=== PATIENT | female | born 1960 | race Caucasian/White ===

== ENCOUNTER 2024-08-03 13:21 | Emergency (ER) | payer OTHER, SELFPAY ==
--- NOTE | ~2024-08-03 | XR_ITS ---
CLINICAL HISTORY: pain 3 views lumbar spine Comparison: None Findings: Grade 1 anterolisthesis of L4 on L5. Moderate chronic wedging of L3. Multilevel disc space narrowing and endplate osteophyte formation, as well as facet hypertrophy. No significant degenerative change. IMPRESSION: No acute findings. This document has been electronically signed by: Charla Zaman MD on 08/03/2024 15:30:41
--- NOTE | ~2024-08-03 | XR_ITS ---
CLINICAL HISTORY: pain 3 views sacrum and coccyx Comparison: None Findings No acute fractures. No significant degenerative change. No erosions. IMPRESSION: No acute findings This document has been electronically signed by: Charla Zaman MD on 08/03/2024 15:30:55
[2024-08-03 13:23] VITALS: BP 130/56; PULSE 100; RESP 18; TEMP 36.4; O2SAT 98; BMI 50.3
--- NOTE | 2024-08-03 13:23 | ED_ITS ---
HPI - Back Pain/Injury General Chief Complaint: Back Pain/Injury Stated Complaint: back pain inj Time Seen by Provider: 08/03/24 16:17 Source: patient, family and RN notes reviewed Mode of arrival: ambulatory Limitations: no limitations History of Present Illness ED Provider: Ayla Cooney PA-C HPI Narrative: This is a [id number]-female, with a hx of herniated discs, HTN, HLD, spinal stenosis, eczema ovarian cysts, and eye strabismus, who presents to the ER with concerns for back pain s/p mechanical fall x 3 days. Reports that on Sunday, she tripped on the threshold in her home in her garage, and ultimately falling onto her back. She immediately had pain in her back. Denies hitting head or LOC. Reports that pain is alleviated laying down flat. She cannot fully stand up straight. Reports no urinary or bowel incontinence. No numbness/tingling. Reporting no back surgeries in the past. Taking tylenol for sxs. Pt ambulatory. She denies hitting her head or LOC. She is not on anticoagulation. No other complaints or concerns at this time. MD elicited complaint: back pain Pertinent past history: recent trauma Onset (ago): day(s) Timing: constant Severity: moderate Similar Symptoms Previously: No Quality: aching Location: lumbar spine and sacrum Radiation: none Exacerbating factors: movement Relieving factors: immobilization Context: fall Associated symptoms: denies other symptoms Work related injury: No Related Data Previous Rx's ?Medication ?Instructions ?Recorded acetaminophen 500 mg tablet 1,000 mg (2 x 500 mg) PO Q8H PRN 08/03/24 (Tylenol Extra Strength) pain #30 tabs cyclobenzaprine 10 mg tablet 10 mg PO TID #14 tabs 08/03/24 lidocaine 5 % topical patch 1 patch topical DAILY #30 ea 08/03/24 Allergies Allergy/AdvReac Type Severity Reaction Status Date / Time No Known Allergies Allergy Unverified 08/03/24 13:29 Review of Systems Review of Systems: Constitutional: No Weight loss, No Fever, No Chills, No Night Sweats, No Fatigue, No Malaise ENT/Mouth: No Hearing loss, No Ear Pain, No Nasal Congestion, No Sinus Pain, No Hoarseness, No sore throat, No Rhinorrhea, No Swallowing Difficulty Eyes: No Eye Pain, No Swelling, No Redness, No Foreign Body, No Discharge, No Vision Changes Cardiovascular: No Chest Pain, No SOB, No Dyspnea on Exertion, No Orthopnea, No Edema, No Palpitations Respiratory: No Cough, No Sputum, No Wheezing, No Smoke Exposure, No Dyspnea Gastrointestinal: No Nausea, No Vomiting, No Diarrhea, No Constipation, No Abdominal pain, No Hematochezia, No Melena Genitourinary: No irregular bleeding, No Dysuria, No Urinary Frequency, No Hematuria, No Urinary Incontinence/retention, No Urgency, No Flank Pain, No Urinary Flow Changes, No Hesitancy Musculoskeletal: +back pain, No joint pain, No Myalgias, No Joint Swelling Skin: No Skin Lesions, No rash Neuro: No Weakness, No Numbness, No Paresthesias, No Loss of Consciousness, No Dizziness, No Headache Psych: No Anxiety/Panic, No Depression, No SI/HI/AH/VH, No Social Issues, Heme/Lymph: No Bruising, No Bleeding,No Lymphadenopathy Endocrine: No Polyuria, No Polydipsia, No Temperature Intolerance Yes all other systems are reviewed and are negative Constitutional: Constitutional: Reports as per [facility] Social History Social History Advance Directives: No Advance Directives Information Provided: Yes Advance Directives on File: No Physical Exam Vital Signs: Vital Signs: Last Vital Signs Temp 96.8 F 08/03/24 16:28 Pulse 82 08/03/24 16:28 Resp 22 H 08/03/24 16:28 BP 113/76 08/03/24 16:28 Pulse Ox 95 08/03/24 16:28 O2 Del Method Room Air 08/03/24 16:28 BMI result Body Mass Index 50.3 Const: General: cooperative, comfortable and no acute distress Orientation/consciousness: patient oriented x3 Limitations: no limitations HEENT: Head: Yes normal to inspection, Yes normocephalic and Yes atraumatic Ears: hearing grossly normal bilaterally General nose exam: Normal external nose present Face and sinus: Yes normal facial exam Mouth: Normal oral and palatal mucosa present, oropharynx normal and moist mucous membranes Throat: Yes posterior oropharynx normal Eyes: General: appearance normal, both eyes and all related structures Eyelids: Yes eyelids normal Conjunctivae: conjunctivae normal Sclerae: sclerae normal Pupils: Equal, round and reactive pupils present EOM: EOMs intact bilaterally Neck: Neck: Yes normal visual inspection, Yes full ROM and Yes no ly mphadenopathy Lymphatic: no lymphadenopathy noted Chest: Chest palpation & inspection: normal inspection of the chest Resp: Effort & Inspection: normal respiratory effort and able to speak in complete sentences Auscultation: clear to auscultation bilaterally, no crackles, no rales, no rhonchi and no wheezes Cardio: Rate: regular rate Rhythm: regular rhythm Heart sounds: S1 normal heart sound present and S2 normal heart sound present GI: Inspection: Yes normal to inspection Back/Spine/Pelvis: Other: Patient with tenderness palpation overlying the lumbar midline spine and sacral region, as well as lumbar paraspinous muscles. Able to flex and extend however with pain appreciated. No overlying skin changes, no open wounds or lacerations. Skin: General skin exam: no rashes or lesions noted Trauma: no lacerations or abrasions Wounds: no wounds Neuro: General: patient oriented x3 and moves all extremities Cranial nerves: Yes Equal, round and reactive pupils present Extrem: General: Yes normal to inspection Right upper extremity: normal to inspection Left upper extremity: normal to inspection Right lower extremity: normal to inspection Left lower extremity: normal to inspection Medical Decision Making Medical Decision Making MDM Narrative: This is a 64-year-old female who presents emergency department for evaluation of back pain status post mechanical fall which occurred 3 days ago. On arrival, vital signs within normal limits. She is speaking full sentences under no acute distress. She does have tenderness palpation along the lumbar midline spine and sacral region as well as the lumbar paraspinous muscles. She has no urinary or bowel retention or incontinence. No saddle anesthesia. Denies hitting her head or LOC. Will obtain x-rays to rule out any bony abnormality. 1600 - x-rays were reviewed revealing no acute findings, there is a grade 1 anterolisthesis at L4 on L5, with chronic wedging of L3, and multilevel disc space narrowing and endplate osteophyte formation. I discussed this with patient. Will discharged on Tylenol, lidocaine patches and muscle relaxants. Urged the importance of following up with the primary care physician. She has no red flag back symptoms therefore additional imaging not indicated at this time. Given strict return precautions. Patient stable for discharge. Differential Diagnosis Differential Diagnoses: The differential diagnosis associated with the presentation includes Fracture, contusion, sprain, strain, dislocation, disc herniation Admission/Observation Consideration of admission/observation: Escalation of care including admi ssion/observation considered Radiology Impression Discussion of test interpretation with radiology: I have reviewed the radiologist's reading. Radiologist Impression: Findings: Grade 1 anterolisthesis of L4 on L5. Moderate chronic wedging of L3. Multilevel disc space narrowing and endplate osteophyte formation, as well as facet hypertrophy. No significant degenerative change. IMPRESSION: No acute findings. This document has been electronically signed by: Charla Zaman MD on 08/03/2024 15:30:41 Dictated By: Charla Zaman MD Findings No acute fractures. No significant degenerative change. No erosions. IMPRESSION: No acute findings This document has been electronically signed by: Charla Zaman MD on 08/03/2024 15:30:55 Dictated By: Charla Zaman MD Discharge Plan Discharge Clinical Impression: Lumbar contusion Patient Disposition: Home, Self-Care Instructions: Contusion in Adults (ED) Additional Instructions: You were seen in the emergency department due to back pain after a fall. Your x-rays do not show any new bony abnormalities. You do have a grade 1 anterolisthesis on L4 on L5 (mildly slipped disc), as well as chronic wedging at L3, with multilevel disc space narrowing and osteophyte formations, this is degenerative findings. Please follow-up with your primary care physician regarding this visit. Take Tylenol as needed for pain. Flexeril as a muscle relaxants, take as needed. Please be advised that this can cause drowsiness, do not drink alcohol or drive while taking this medication. Gentle stretching, heat or ice, and massage can also help with your symptoms. If any new or worsening symptoms occur including but not limited to severe chest pain, shortness of breath, worsening back pain, numbness tingling into your groin, loss of bladder or bowel control, please seek emergent care. Findings: Grade 1 anterolisthesis of L4 on L5. Moderate chronic wedging of L3. Multilevel disc space narrowing and endplate osteophyte formation, as well as facet hypertrophy. No significant degenerative change. IMPRESSION: No acute findings. This document has been electronically signed by: Charla Zaman MD on 08/03/2024 15:30:41 Prescriptions: New cyclobenzaprine 10 mg tablet 10 mg PO TID Qty: 14 0RF acetaminophen [Tylenol Extra Strength] 500 mg tablet 1,000 mg PO Q8H PRN (Reason: pain) Qty: 30 0RF lidocaine 5 % adhesive patch,medicated 1 patch topical DAILY Qty: 30 0RF Rx Instructions: leave on most painful area for up to 12 hrs Interventions: ED Discharge Assessment Last Done: 08/03/24 16:28 Discharge Date/Time: 08/03/24 16:29 Print Language: Slovenian
[2024-08-03 16:16] VITALS: BP 113/76; PULSE 82; RESP 22; TEMP 36; O2SAT 95
--- OUTSIDE RECORDS SUMMARY | 2024-08-03 16:25 | XMS_ITS ---
Author Name [facility] Organization Unknown History of Medication Use Medication Directions Dispensed Refills Start Date End Date Stat us lactated ringers infusion 100 mL/hr, Intravenous, Continuous, Starting on Sun08/10/23 at 0730, Pre-op 08/10/2023 active Encounters Encounter Type Encounter Reason Primary Diagnosis Location Date Ambulatory Tarsal tunnel syndrome, left lower limb Tarsal tunnel syndrome, left lower limb [facility] 08/10/2023 Care Team Organization Name Specialty Phone Email Start Date End Da te [facility] 0 07/31/2023 [facility] 07/30
--- OUTSIDE RECORDS SUMMARY | 2024-08-03 16:25 | XMS_ITS | Data Portability ---
Author Organization [facility] Address [address] [place] [address] Care Team Providers Care Financial Data Analyst Name Role Phone ETHAN CHANDLER Primary Care Provider [phone] Assessment Encounter Date Assessment Date Assessment LastModified by Organization Details LastModified Time 01/29/2019 01/29/2019 Astrid Mg is a 58 year old woman with low back pain radiating occasionally into both lower extremities On exam ,she has pain on flexion. MRI Lumbar spine shows L3-4: There is epidural lipomatosis and moderate degenerative facet arthropathy without significant central canal stenosis or foraminal stenosis. L4-5: . There is marked degenerative facet arthropathy and epidural lipomatosis causing mild flattening of the dural sac without nerve root compression. L5-S1: There is marked disc space narrowing and endplate degenerative spur formation. There is mild broad-based disc herniation and moderate degenerative facet arthropathy superimposed on epidural lipomatosis. There is mild left-sided foraminal stenosis without nerve root compression . Currently her pain level is low . She may benefit from a lumbar epidural steroid injection under fluoroscopic guidance. She can call for an appointment when pain returns. [email or web address] Not available 02/10/2019 12:14:17 Plan of Treatment Reminders Order Date Submit Date Provider Last Modified By Organization Details Last Modified Time Details Appointments None record ed. Lab None record ed. Referral None record ed. Procedures None record ed. Surgeries None record ed. Imaging None record ed. Medication Orders None record ed. Patient TargetsNo targets recorded. Patient InstructionsNo instructions recorded. Reason for Referral None Reported. Problems Name Problem SNOMED Code Status Onset Date Resolution Date Notes Provider Name and Address Organization Details Recorded Time Degeneration of lumbar intervertebral disc 45220199 Active Aimee baron MD [address] , [address], [place], [address], [place] [facility] 9 10:05:11 Lumbosacral radiculopathy 2057243 Active Aimee baron MD [address] , [address], [place], [address], [facility] 9 10:05:29 Problem Notes None recorded. Procedures Surgical History Date Name Laterality Status Provider Name and Address Organization Details Recorded Time Removal of ovarian cyst(s) completed Aimee Patel MD [address] , [address], [place], [address], [facility] - [facility] Management 02/10/2019 11:58:02 Imaging Results None recorded. Procedure Notes None recorded. Medical Equipment None Reported. Allergies Allergen ID Allergen Name Allergen Category Reaction Reaction Severity Criticality Documentation Date Start Date Code Code System Note Provider Name and Address Organization Details Recorded Time 29962 Substance with sulfonami de structure and antibacte rial mechanism of action (substanc e) medicatio n Not available Not available Not available 01/29/2019 [id number] SNOMED Daja baron [facility], [facility] 9 13:14:13 Medications Name Sig Start Date Stop Date Status Note LastModified by Organization Details LastModified Time lisinopril 20 mg-hydrochlo rothiazide 12.5 mg tablet TAKE 1 AND 1/2 TABLET BY MOUTH ONCE DAILY active Not Available Not Available No t Available lisinopril 20 mg tablet Take 1 tablet every day by oral route. 01/29 completed Not Available Not Available Not Available omeprazole 20 mg capsule,lamar yed release Take 1 capsule every day by oral route. active Not Available Not Available No t Available Shingrix (PF) 50 mcg/0.5 mL intramuscula r suspension, kit ADM 0.5ML IM UTD active Not Available Not Available No t Available Vitals Date Recorded Heart rate Oxygen saturation Oxygen saturation in Arterial blood by Pulse oximetry Pain severity - 0-10 verbal numeric rating [Score] - Reported Systolic blood pressure Diastolic blood pressure Provider Name and Address Organization Details Last Updated DateTime 9 90 /min 99 % 99 % 1 134 mm[Hg] 63 mm[Hg] Daja baron [place] - [facility] 9 13:14:53 Social History Question Answer Notes LastModified by Organizat ion Details LastModified Time Tobacco Smoking Status Never Smoker Daja goodwin [place] - [facility] 01/29/2019 13:18:14 What Is Your Level Of Alcohol Consumption? Moderate Information not available 01/29/2019 Which Illicit Or Recreational Drugs Have You Used? None Information not available 01/29/2019 What Is Your Occupation? Self Employed Information not available 01/29/2019 Sex: Unknown Functional Status None recorded. Mental Status None recorded. Family History Nothing Reported. Medical History Condition Response Gout N Neuropathy/Neuralgia N Kidney Stones N Hyperthyroidism N Hypothyroidism N Depression N COPD N Hepatitis C N Migrane N Anxiety Disorder N Diabetes N Arthritis Y Seizures/Epilepsy N Hyperlipidemia N Cancer N Stroke N Asthma N HIV/AIDS N Bipolar Disorder N GERD/Reflux Y High Cholesterol N Liver Disease N Pulmonary Embolism N Fibromyalgia N Irritable Bowel Syndrome Y Hypertension Y Osteoporosis N Kidney Disease N Gynecological HistoryNo gynecological history recorded. Obstetrics History GPAL:G 0 P 0 0 0 0 Past Encounters Encounter ID Performer Location Encounter Start Date Encounter Closed Date Diagnosis/Indication Diagnosis SNOMED-CT Code Diagnosis ICD10 Code Diagnosis Note [id number] Aimee Patel MD PAIN OFFICE [address] [place] [phone] 01/29/2019 13:02:39 02/10/2019 12:14:45 Lumbosacral radiculopathy 4679945 M54.17 Degenerati on of lumbar intervertebral disc 01941764 M51.36 Health Concerns Section Related Observation LastModified by Organization Detai ls LastModified Time None Recorded Concern Status LastModified by Organization Details LastModified Time None Recorded Advance Directives Directive None Recorded Payers Encounter Date Sequence Insurance Name Policy Number Policy [place] Covered Member ID [place] Member ID Guarantor Name 01/29/[address] [place] [address] [id number] Astriddavid Hopkinsy [id number] Astrid Mg Notes Date Note Type Note Provider Name and Address Organization Details Recorded Time 01/29/2019 text/html Astrid Mg i s a 58 year old woman with complaints of low back pain radiating into both legs . The pain started years ago . She states she is very active and was gardening and pushing a wheel huslia and started to have severe pain radiating into both lower extremities. She describes the pain as an aching pain. The pain has resolved and she is feeling better. Current pain level is 0-1/10. Pain is aggravated by standing and walking . Pain is relieved with rest. She is unable to sleep due to positioning and awakens multiple times at night due to pain. She has no history of bladder or bowel incontinence.MRI Lumbar spine shows L3-4: There is epidural lipomatosis and moderate degenerative facet arthropathy without significant central canal stenosis or foraminal stenosis. L4-5: . There is marked degenerative facet arthropathy and epidural lipomatosis causing mild flattening of the dural sac without nerve root compression. L5-S1: There is marked disc space narrowing and endplate degenerative spur formation. There is mild broad-based disc herniation and moderate degenerative facet arthropathy superimposed on epidural lipomatosis. There is mild left-sided foraminal stenosis without nerve root compressionShe has trialed physical therapy with some pain benefit. Aimee Patel MD [address] [place] [address] , [address], [place], [address], [place] [facility] 02/11/2019 09:00:34 OBGyn Episode No OBEpisode recorded.
--- OUTSIDE RECORDS SUMMARY | 2024-08-03 16:25 | XMS_ITS | Data Portability ---
Author Organization [facility], [facility] [place] Address [address] [place] [address] Care Team Providers Care Entrepreneurship Program Director Name Role Phone ETHAN CHANDLER Primary Care Provider Assessment No assessment recorded. Plan of Treatment Reminders Order Date Submit Date Provider Last Modified By Organization Details Last Modified Time Details Appointments RECHECK 15 2024 09:45A M Doris Fraser PA-C Not available Not available Not available Lab None recorded . Referral None recorded . Procedures None recorded . Surgeries None recorded . Imaging None recorded . Medication Orders None recorded . Patient TargetsNo targets recorded. Patient Instructions Encounter Date Encounter Id Patient Instructions Last Modified By Organization Details Last Modified Time 09/10/2023 [id number] You have been provided with a cortisone injection in order to reduce the pain and inflammation that you are experiencing. The injection consists of two medications. Cortisone (an anti-inflammatory that will take 48-72 hours to take effect) and Lidocaine (a numbing agent that will last 2-3 hours). Please note that not everyone will have a lasting response following the injection. PATIENT INSTRUCTIONS Once the Lidocaine wears off, you may have an increase in your pain. I recommend icing the affected area for 20 minutes 3-4 times per day. It is recommended that you refrain from any high level activities using the joint or limb that was injected for approximately 24-48 hours. Normal day-to-day activities are generally not a problem. POSSIBLE SIDE EFFECTS Individuals with dark complexions may experience some skin discoloration locally at the site of the injection. There is the possibility of an increase in discomfort within 48 hours following the injection. This is called a ? f lare? . To help minimize the chances of this, please see the post-injection instructions above. There is a less than 1% chance of an infection. If you notice any signs of infection (redness, warmth, drainage, fever greater than 100 degrees) please call our office or contact us through the portal EMILY. [email or web address] Not available 09/09/2023 08:12:38 Reason for Referral None Reported. Results Created Date Observation Date Name Description Value Unit Range Abnormal Flag Note LastModifiedBy Organization Detail LastModifiedTime 12/01/19 24 11/30/2021 imagi ng/di agnos tic resul t No observ ation record ed. [email or web address] Not Available 11/02 09:37:34 12/01/19 24 03/02/2021 imagi ng/di agnos tic resul t No observ ation record ed. [email or web address] Not Available 11/02 09:37:52 Result Notes None recorded. Problems Name Problem SNOMED Code Status Onset Date Resolution Date Notes Provider Name and Address Organization Details Recorded Time No complaints [id number] Active Status : 'A'; Not Available [facility] 4 09:17:01 Osteoarthr itis of right knee joint 1230767652322 00 Active 2023 Doris Fraser PA-C [address], [place], [address] , [facility] 4 11:39:00 Bilateral osteoarthr itis of knees 6656337753053 07 Active 2023 Doris Fraser PA-C [address], [place], [address] , [facility] 4 08:12:31 Problem Notes None recorded. Procedures Surgical History Date Name Laterality Status Provider Name and Address Organization Details Recorded Time 06/10/2024 Sports Knee 4&1 completed Doris Fraser PA-C [address], [place], [address], [facility] 06/09/2024 16:17:31 03/11/2024 Sports Knee 4&1 completed Doris Fraser PA-C [address], [place], [address], [facility] 03/10/2024 14:02:01 12/11/2023 Sports Knee 4&1 completed Doris Fraser PA-C [address], [place], [address], [facility] 12/10/2023 11:38:52 09/10/2023 Sports Knee 4&1 completed Doris Fraser PA-C [address], [place], [address], [facility] 09/10/2023 09:06:36 Imaging Results Imaging Date Name Status LastModified by Organiz ation Details LastModified Time 11/30/2021 imaging/diag nostic result completed Information not available 12/01/2023 09:37:34 03/02/2021 imaging/diag nostic result completed Information not available 12/01/2023 09:37:52 Procedure Notes None recorded. Medical Equipment None Reported. Allergies No known drug allergies Medications Name Sig Start Date Stop Date Status Note LastModified by Organization Details LastModified Time celecoxib 200 mg capsule TAKE 1 CAPSULE BY MOUTH DAILY 03/05 completed Not Available Not Available Not Available lisinopril 20 mg-hydrochl orothiazide 12.5 mg tablet TAKE 2 TABLETS BY MOUTH DAILY active Not Available Not Available No t Available omeprazole 20 mg capsule,del ayed release TAKE 1 CAPSULE BY MOUTH DAILY 30 MINUTES BEFORE BREAKFAST active Not Available Not Available No t Available rosuvastati n 5 mg tablet TAKE 1 TABLET BY MOUTH EVERY DAY active Not Available Not Available No t Available Vitals Date Recorded Body height Body mass index (BMI) Body weight Provider Name and Address Organization Details Last Updated DateTime 09/10/2023 160.02 cm 49.2 kg/m2 283896.68 g TWIN MORILLO [facility] 09/10/2023 08:45:21 Date Recorded Body height Body mass index (BMI) Body weight Provider Name and Address Organization Details Last Updated DateTime 12/11/2023 160.02 cm 49.2 kg/m2 078983.68 g CHANTEL FERNANDEZ [facility] 12/11/2023 09:23:30 Date Recorded Body height Body mass index (BMI) Body weight Provider Name and Address Organization Details Last Updated DateTime 03/11/2024 160.02 cm 49.2 kg/m2 254449.68 g JAVED MCKEON [facility] 03/11/2024 09:17:55 Date Recorded Body height Body mass index (BMI) Body weight Provider Name and Address Organization Details Last Updated DateTime 06/10/2024 160.02 cm 49.2 kg/m2 661657.68 g Doris Fraser PA-C [address], [address], [facility] 06/10/2024 09:05:00 Social History None recorded. Functional Status None recorded. Mental Status None recorded. Family History Nothing Reported. Medical History Condition Response Allergies/Hayfever N Coronary Artery Disease N Breathing or lung disorders N Anxiety/Depression N Emphysema N Nerve Disorders N Thyroid Problems N COPD N Pacemaker N Kidney/Bladder Problems N Anemia N Vascular Disease N Heart Trouble N Gastrointestinal Disease N Heart Attack ([place]) N Cholesterol Y Diabetes N Autoimmune disease N Inflammatory Joint disease N Bleeding Disorder N Orthotics N Arthritis N Seizures/Epilepsy N Blood Clot N AIDS/HIV N Congestive Heart Failure (CHF) N Acid Reflux (GERD) N Cancer N Stroke N Asthma N Circulation Problems N Peripheral Vascular Disease N Sleep Apnea N Hepatitis N Heart Disease N Rheumatoid Arthritis N Arrhythmia N Pulmonary Embolism N Headaches N Fibromyalgia N Hypertension N Osteoporosis N Gynecological HistoryNo gynecological history recorded. Obstetrics History GPAL:G 0 P 0 0 0 0 Past Encounters Encounter ID Performer Location Encounter Start Date Encounter Closed Date Diagnosis/Indication Diagnosis SNOMED-CT Code Diagnosis ICD10 Code Diagnosis Note [id number] [facility] [address] [place] [address] 09/10/2023 08:39:00 10/02/2023 15:12:50 Bilateral osteoarthritis of knees [id number] 09217 M17.0 Nature of the diagnosis discussed with the patient today. Both surgical and nonsurgica l options were reviewed. At this point I have recommende d a repeat cortisone injection. Patient agrees with this plan. Patient tolerated the procedure well. Post injection precaution s reviewed. They will continue with conservati ve modalities including icing and elevating. Follow-up with us in 3 months for discussion of continued conservati ve management versus total joint arthroplas ty. Endy osullivan she has a history of gastric ulcer so would recommend discussion with PCP regarding any [facility] use of celebrex. While it is more selective and has lower GI risk profile given her history would recommend input from PCP for any further use. [id number] RADHA Santizo [address] [place] [address] 12/11/2023 08:44:30 01/03/2024 12:30:41 Osteoarthritis of right knee joint [id number] 44660 M17.11 Nature of the diagnosis discussed with the patient today. Both surgical and nonsurgica l options were reviewed. At this point I have recommende d a repeat cortisone injection. Patient agrees with this plan. Patient tolerated the procedure well. Post injection precaution s reviewed. They will continue with conservati ve modalities including icing and elevating. Follow-up with us in 3 months for discussion of continued conservati ve management versus total joint arthroplas ty. [id number] RADHA Santizo [address] [place] [address] 03/11/2024 09:09:24 04/04/2024 11:45:30 Osteoarthritis of right knee joint 4471208025 47391 M17.11 Nature of the diagnosis discussed with the patient today. Both surgical and nonsurgica l options were reviewed. At this point I have recommende d a repeat cortisone injection. Patient agrees with this plan. Patient tolerated the procedure well. Post injection precaution s reviewed. They will continue with conservati ve modalities including icing and elevating. Follow-up with us in 3 months for discussion of continued conservati ve management versus total joint arthroplas ty. [id number] RADHA Santizo [address] [place] [address] 06/10/2024 09:00:55 06/25/2024 14:10:58 Osteoarthritis of right knee joint [id number] 58250 M17.11 Nature of the diagnosis discussed with the patient today. Both surgical and nonsurgica l options were reviewed. At this point I have recommende d a repeat cortisone injection. Patient agrees with this plan. Patient tolerated the procedure well. Post injection precaution s reviewed. They will continue with conservati ve modalities including icing and elevating. Follow-up with us in 3 months for discussion of continued conservati ve management versus total joint arthroplas ty. Health Concerns Section Related Observation LastModified by Organization Detai ls LastModified Time None Recorded Concern Status LastModified by Organization Details LastModified Time None Recorded Advance Directives Directive None Recorded Payers Encounter Date Sequence Insurance Name Policy Number Policy [place] Covered Member ID [place] Member ID Guarantor Name 09/10/2023 1 [facility] [id number] 1 Astrid A A Haritha [id number] Astrid A Haritha 12/11/2023 1 [facility] [id number] 1 Astrid A A Haritha [id number] Astrid A Haritha 03/11/2024 1 [facility] [id number] 1 Astrid A A Haritha [id number] Astrid A Haritha 06/10/2024 1 [facility] [id number] 1 Astrid A A Haritha [id number] Astrid A Haritha Notes Date Note Type Note Provider Name and Address Organization Details Recorded Time 09/10/2023 text/html I am seeing the patient under the general supervision of {{Dr. Ewing* Dr. Odilon Antunez}} who was available but who did not see the patient. HPI: Patient presents today for recheck of {{left right* bilate ral}} knee osteoarthritis. Is known to have arthritis treated conservatively with intermittent cortisone injections every 3 months as needed. No new injury or modalaties. Last injection(s) were {{ 06/11/23#}}. Reports she was prescribed celebrex after a foot surgery and it worked excellent! Inquires if this would be an option for her as well. Doris Fraser PA-C [address] [facility] [address], [place], [address], [facility] 09/10/2023 09:18:35 12/11/2023 text/html I am seeing the patient under the general supervision of {{Dr. Ewing* Dr. Odilon Antunez}} who was available but who did not see the patient. HPI: Patient presents today for recheck of {{left right* bilate ral}} knee osteoarthritis. Is known to have arthritis treated conservatively with intermittent cortisone injections every 3 months as needed. No new injury or modalaties. Last injection(s) were {{ 09/10/23#}}. Doris Fraser PA-C [address], [place], [address], [facility] 12/11/2023 09:24:15 03/11/2024 text/html I am seeing the patient under the general supervision of {{Dr. Ewing* Dr. Odilon Antunez}} who was available but who did not see the patient. HPI: Patient presents today for recheck of {{left right* bilate ral}} knee osteoarthritis. Is known to have arthritis treated conservatively with intermittent cortisone injections every 3 months as needed. No new injury or modalaties. Last injection(s) were {{ 12/11/23#}}. Doris Fraser PA-C [address], [place], [address], [facility] 03/11/2024 09:34:51 06/10/2024 text/html I am seeing the patient under the general supervision of {{Dr. Ewing* Dr. Odilon Antunez}} who was available but who did not see the patient. HPI: Patient presents today for recheck of {{left right* bilate ral}} knee osteoarthritis. Is known to have arthritis treated conservatively with intermittent cortisone injections every 3 months as needed. No new injury or modalaties. Last injection(s) were {{ 03/11/24#}}. RICHARD SantizoC [address], [place], [address], [facility] 06/10/2024 09:28:34 OBGyn Episode No OBEpisode recorded.
--- OUTSIDE RECORDS SUMMARY | 2024-08-03 16:25 | XMS_ITS | Clinical Summary ---
Author Organization [facility] Address [address] [id number] Care Team Providers Care Utility Sales And Service Manager Name Role Phone Florentin Peng MD Primary Care Provider Unavail able Allergies No known active allergies Medications Medication Sig Dispensed Refills Start Date End Date Status omeprazole (PriLOSEC) 20 MG capsule TAKE 1 CAPSULE BY MOUTH EVERY DAY BEFORE A MEAL 0 05/05/2021 Active lisinopril-hydroCHLORO thiazide (PRINZIDE,ZESTORETIC) tablet 20-12.5 mg Take 2 tablets by mouth daily. 0 05/05/2021 Active LOVASTATIN PO Take 5 mg by mouth daily. 0 Active Family History Medical History Relation Name Comments Cancer Father Hyperlipidemia Father Cancer Mother Hypertension Mother Hyperlipidemia Sister Hypertension Sister Relation Name Status Comments Father Mother Sister Social History Tobacco Use Types Packs/Day Years Used Date Smoking Tobacco: Never Smokeless Tobacco: Never Tobacco Cessation:Counseling Given: Not Answered Alcohol Use Standard Drinks/Week Comments Not Currently 0 (1 standard drink = 0.6 oz pur e alcohol) weekend Sex and Gender Information Value Date Recorded Sex Assigned at Female 08/01/2023 1:37 PM EDT Gender Identity Female 08/01/2023 1:37 PM EDT Sexual Orientation Not on file Job Start Date Occupation Industry Not on file Not on file Not on file Last Filed Vital Signs Vital Sign Reading Time Taken Comments Blood Pressure 127/66 08/10/2023 9:42 AM EDT Pulse 77 08/10/2023 9:42 AM EDT Temperature 36 ??C (96.8 ??F) 08/10/2023 9:15 AM EDT Respiratory Rate 17 08/10/2023 9:42 AM EDT Oxygen Saturation 97% 08/10/2023 9:42 AM EDT Inhaled Oxygen Concentration - - Weight 127 kg (280 lb) 08/01/2023 1:36 PM EDT Height 160 cm (5' 3 ) 08/01/2023 1:36 PM EDT Body Mass Index 49.6 08/01/2023 1:36 PM EDT Plan of Treatment Health Maintenance Due Date Last Done Comments Hepatitis C Screening 1961 COVID-19 Vaccine (#1) 1961 Depression Screening 1973 BMI Counseling 1979 Preventative Health Evaluation 1979 DTap / Tdap / Td (1 - Tdap) 02/19/1980 Cervical Cancer Screening (P ap Smear) 1982 Colon Cancer Screening (Colonoscopy) 2006 Breast Cancer Screening (Mammogram) 2011 Shingrix-Zoster Vaccine (1 of 2) 2011 RSV Adult > 60+ Yrs or Pregn ant (1 - Risk 60-74 years 1-dose series) 2021 Influenza Vaccine (#1) 2023 Hepatitis B Vaccines Aged Out No long er eligible based on patient's age to complete this topic Pneumococcal Vaccine Aged Out No long er eligible based on patient's age to complete this topic RSV Ped < 20 months Aged Out No longe r eligible based on patient's age to complete this topic Insurance Payer Benefit Plan / Group Subscriber ID Effective Dates Phone Address [facility] [id number] 2021-Presen t [address] [place] [address] O Care Teams Utility Sales And Service Manager Relationship Specialty Start Date End Date Florentin Peng MD PCP - General Internal Medicine 04/15/21
[2024-08-03 16:28] VITALS: BP 113/76; PULSE 82; RESP 22; TEMP 36; O2SAT 95
== END 2024-08-03 16:29 | disposition home or self-care (01) ==
PROVIDERS: Emergency Provider Emergency Medicine; PCP Internal Medicine
DX: S30.0XXA Contusion of lower back and pelvis, initial encounter (principal); M54.50 Low back pain, unspecified; M53.3 Sacrococcygeal disorders, not elsewhere classified; W01.0XXA Fall on same level from slipping, tripping and stumbling without subsequent striking against object, initial encounter; Y93.9 Activity, unspecified; Y92.9 Unspecified place or not applicable; Y99.8 Other external cause status
CPT/HCPCS: 72100; 72220; 99282; 99283

== ENCOUNTER → 2024-08-03 13:30 | Outpatient (BNV) | payer OTHER, SELFPAY | PROVIDERS: PCP Internal Medicine; Visit Provider Radiology Diagnostic Radiology | DX: S30.0XXA Contusion of lower back and pelvis, initial encounter (principal) | CPT/HCPCS: 72100; 72220 ==